=== PATIENT | female | born 1980 | race Caucasian/White ===

== ENCOUNTER 2023-07-09 09:24 | Emergency (ER) | payer MEDICAID ==
[~2023-07-09] VITALS: Ht 152.4 cm; Wt 79.5 kg
[2023-07-09 10:42] LABS: Urine Bacteria FEW /hpf (None Seen); Urine Blood 1+ /uL (Negative); Urine Clarity HAZY (Clear); Urine Color Colorless (Yellow); Urine Hyaline Cast FEW /lpf (0 - 2); Urine Protein, UAD Negative (Negative); Urine Specific Gravity 1.016 (1.001-1.035); Urine Urobilinogen Normal (Negative); Urine WBC 120 /hpf (0 - 5)
[2023-07-09] MEDS ORDERED: CIPR-173 PO (11:33)
[2023-07-09 11:42] VITALS: BP 119/51; PULSE 70; RESP 17; TEMP 98; O2SAT 99
== END 2023-07-09 11:44 | disposition home or self-care (01) ==
LOC: ER 09:24
DX: N39.0 Urinary tract infection, site not specified (principal); R19.00 Intra-abdominal and pelvic swelling, mass and lump, unspecified site; Z79.2 Long term (current) use of antibiotics
CPT/HCPCS: 76856; 81001